=== PATIENT | male | born 1960 | race Caucasian/White ===

== ENCOUNTER 2019-09-05 05:44 | Day surgery (SDC) | payer BC ==
[2019-09-05] MEDS ORDERED: fentaNYL 100 MCG/2 ML SDV IV ONE ×3 (05:45→07:16)
[2019-09-05] MEDS ORDERED: Midazolam 1 MG/ML 2 ML SDV IV ONE ×7 (05:45→07:21)
[2019-09-05] MEDS ORDERED: Dextrose 5%-0.45% NaCl 1,000 ML IV SCH (06:00)
[2019-09-05] MEDS ORDERED: Sodium Chloride 0.9% 10 ML Syringe FLUSH PRN (06:00)
[2019-09-05] MEDS ORDERED: Midazolam 1 MG/ML 2 ML SDV ONE (06:13)
[2019-09-05] MEDS ORDERED: fentaNYL 100 MCG/2 ML SDV ONE (06:14)
[2019-09-05 10:35] VITALS: BP 120/74; PULSE 84
--- NOTE | 2019-09-05 11:14 | OR ---
DATE: 09/05/2019 PROCEDURE: Total colonoscopy, NBI, and multiple pinch biopsies. INSTRUMENT USED: PCF-H190DL Olympus video colonoscope. PREMEDICATIONS: Fentanyl 100 mcg intravenous, Versed 4 mg intravenous. The procedure was done under pulse oximetry, BP recording, and property valuer. INDICATION: The patient with previous sessile cecal polyp removal. Followup colonoscopic examination is done for detection of any residual polyp and removal, endoscopic hemostasis therapy if needed. DESCRIPTION OF PROCEDURE: Initial rectal exam was unremarkable. Rigid anoscopy was normal. The colonoscope was passed with ease. Scattered diverticula were noted in the distal left colon along with deformity. Scope was passed with ease up to the ileocecal area. Photographs were taken of the cecum showing more than 2 cm sized sessile polyp without bleeding from it, NBI views were obtained, photographs were taken. Superficial pinch biopsy was taken and sent for histopathology. No bleeding was noted from any of the visualized areas at the commencement of the examination. Bowel preparation was found to be adequate, Dallas scale 2 in all the regions. No stricture. No vascular ectasia. No large isolated ulcerations seen. No evidence of diffuse inflammatory bowel disease in the form of friability, contact bleeding, or ulcerations. Probing the proximal sides of folds and flexures using adequate distention and clearing up the stool material, withdrawal of the scope was made. Cecum to rectum time over 6 minutes. No bleeding was noted from any of the visualized areas at the completion of examination. IMPRESSION: 1. Diverticulosis. 2. Cecal sessile polyp. The patient tolerated the procedure well. [facility] /[id number]
== END 2019-09-05 09:36 | disposition home or self-care (01) ==
LOC: DL.ENDO 05:44
PROVIDERS: ATTEND Internal Medicine Gastroenterology
DX: Z12.11 Encounter for screening for malignant neoplasm of colon (principal); D12.0 Benign neoplasm of cecum; K57.30 Diverticulosis of large intestine without perforation or abscess without bleeding; K43.9 Ventral hernia without obstruction or gangrene; I10 Essential (primary) hypertension; E78.5 Hyperlipidemia, unspecified; E66.09 Other obesity due to excess calories; Z88.8 Allergy status to other drugs, medicaments and biological substances; Z86.010 Personal history of colon polyps; Z68.30 Body mass index [BMI] 30.0-30.9, adult
CPT/HCPCS: 45380; J2250; J3010; J7042

== ENCOUNTER 2020-05-28 05:40 | Day surgery (SDC) | payer BC ==
[2020-05-28] MEDS ORDERED: Midazolam 1 MG/ML 2 ML SDV IV ONE (05:41)
[2020-05-28] MEDS ORDERED: fentaNYL 100 MCG/2 ML SDV IV ONE (05:41)
[2020-05-28] MEDS ORDERED: Sodium Chloride 0.9% 10 ML Syringe FLUSH PRN (06:00)
[2020-05-28] MEDS ORDERED: Midazolam 1 MG/ML 2 ML SDV ONE (06:12)
[2020-05-28] MEDS ORDERED: fentaNYL 100 MCG/2 ML SDV ONE (06:13)
[2020-05-28] MEDS: Dextrose 5%-0.45% NaCl 1,000 ML IV SCH (06:21)
[2020-05-28] MEDS: fentaNYL 100 MCG/2 ML SDV IV ONE ×2 (06:55→06:56)
[2020-05-28] MEDS: Midazolam 1 MG/ML 2 ML SDV IV ONE ×6 (06:56→07:04)
--- NOTE | 2020-05-28 08:55 | OR ---
DATE: 05/28/2020 PROCEDURE: Total colonoscopy, narrow band imaging, and cold snare polypectomy. INSTRUMENT USED: PCF-H190DL Olympus video colonoscope. PREMEDICATIONS: Fentanyl 100 mcg intravenous, Versed 4 mg intravenous, nasal O2 cannula. Procedure was done under pulse oximetry, BP recording, and secured entrance monitor. INDICATION: The patient with previous EMR, sessile cecal polyp. Followup colonoscopic examination is done for detection of any residual polyp tissue and removal, endoscopic hemostasis therapy if needed. DESCRIPTION OF PROCEDURE: Initial rectal exam was unremarkable. Rigid anoscopy was normal. The colonoscope was passed with ease. Scattered diverticula were noted in the distal left colon along the deformity. The scope was passed with ease up to the ileocecal area. Photographs were taken of the cecum showing scar tissue of previous polypectomy and residual diminutive polyp tissue in a couple of areas. NBI views were obtained, photographs were taken, cold snare polypectomies were done, the tissue was retrieved, and sent for Histopathology. No bleeding was noted from any of the visualized areas at the commencement of the examination. No stricture. No vascular ectasia. No large isolation or ulceration seen. No evidence of diffuse inflammatory bowel disease in the form of friability, contact bleeding, or ulcerations. Probing the proximal sides of folds and flexures using adequate distention and clearing of the stool material, withdrawal of the scope was made, cecum to rectum time over 6 minutes. No bleeding was noted from any of the visualized areas at the completion of examination. IMPRESSION: 1. Diverticulosis. 2. Diminutive cecal polyp. The patient tolerated the procedure well. [facility] /[id number]
[2020-05-28 10:40] VITALS: BP 110/87; PULSE 77
== END 2020-05-28 10:06 | disposition home or self-care (01) ==
LOC: DL.ENDO 05:40
PROVIDERS: ATTEND Internal Medicine Gastroenterology
DX: K63.5 Polyp of colon (principal); K57.30 Diverticulosis of large intestine without perforation or abscess without bleeding; E78.5 Hyperlipidemia, unspecified; I10 Essential (primary) hypertension; E66.09 Other obesity due to excess calories; Z68.31 Body mass index [BMI] 31.0-31.9, adult
CPT/HCPCS: 45385; J2250; J3010; J7042

== ENCOUNTER 2022-04-04 12:01 | Emergency (ER) | payer BC ==
[2022-04-04] MEDS ORDERED: Lidocaine 1% 30 ML SDV INJECT ONE (12:08)
[2022-04-04] MEDS ORDERED: Bacitracin Oint 1 GM U/D Packet TOP ONE (12:08)
[2022-04-04 12:16] VITALS: BP 147/102; PULSE 96
[2022-04-04] MEDS ORDERED: Diphtheria,Pertussis(Acell),Tetanus Vaccine 0.5 ML Syringe IM ONE (12:20)
== END 2022-04-04 13:10 | disposition home or self-care (01) ==
LOC: DL.ED 12:01
DX: S01.81XA Laceration without foreign body of other part of head, initial encounter (principal); S11.91XA Laceration without foreign body of unspecified part of neck, initial encounter; E78.00 Pure hypercholesterolemia, unspecified; I10 Essential (primary) hypertension; E66.9 Obesity, unspecified; Z68.30 Body mass index [BMI] 30.0-30.9, adult; Z23 Encounter for immunization; Z79.899 Other long term (current) drug therapy; Z88.8 Allergy status to other drugs, medicaments and biological substances; W26.8XXA Contact with other sharp object(s), not elsewhere classified, initial encounter
CPT/HCPCS: 12002; 12011; 90471; 90715; 99282-25